=== PATIENT | male | born 1965 | race Caucasian/White ===

== ENCOUNTER 2023-03-28 07:37 | Day surgery (SDC) | payer OTHER, SELFPAY ==
--- NOTE | 2023-03-28 | PATH_ITS ---
[facility] Accession Number: [id number] No. of containers..02 Tissue . 01 Material submitted: . PART A: colon - COLON POLYPS PART B: colon - RECTO-SIGMOID . 01 Diagnosis: A. Colon Polyps: Tubular adenoma x2. . B. Rectosigmoid Colon Polyp: Tubular adenoma. [place] 04/04/2023 1149 Local . 01 Electronically signed: . Jesus Page MD, PhD, Pathologist NPI- [id number] . 01 Gross description: . Part A: COLON POLYPS: Received in formalin is 2 fragment(s) of downing, soft tissue measuring 0.3 x 0.3 x 0.1 cm to 0.3 x 0.2 x 0.2 cm submitted entirely in 1 cassette(s) Part B: RECTO-SIGMOID: Received in formalin is 1 fragment(s) of odwning, soft tissue measuring 0.7 x 0.5 x 0.1 cm submitted entirely in 1 cassette(s) /AAY 03/29/2023 0540 Local . 01 Pathologist provided ICD-10: D12.6, D12.7 . 01 CPT . 070148, 378998 Specimen Comment: A courtesy copy of this report has been sent to [phone] Performed at: 01 [facility] [address] [place] [address] [address], [place], [place] [id number] MD Hilton Morrison MD Phone: [phone]
[2023-03-28 07:59] VITALS: BMI 31.7
[2023-03-28 08:02] VITALS: BP 144/89; PULSE 72; RESP 20; TEMP 36.6; O2SAT 95
[2023-03-28] MEDS: LACTATED RINGERS 1,000 ML 42 ML IV (08:17)
--- NOTE | 2023-03-28 08:38 | PM.HP.1 ---
History of Present Illness History of Present Illness Date Patient Seen: 03/28/23 Time Patient Seen: 08:38 Chief complaint: SDC Narrative: 57-year-old male that I met earlier this year in the office. He continues to struggle with incomplete colon evacuations just been going on most of this year if not before. He has a history of colon polyps. [facility] Medical History Sleep apnea treated with continuous positive airway pressure (CPAP) Seasonal allergies Allergy history, milk products Acid reflux Social History household members: spouse Smoking Status: Never smoker alcohol intake: current Meds Home Medications and Allergies Home Medications Medication Instructions Recorded Confirmed Type fexofenadine 180 mg tablet 180 mg PO DAILY 03/28/23 03/28/23 History omeprazole magnesium 20 mg 20 mg PO DAILY 03/28/23 03/28/23 History tablet,delayed release (Prilosec OTC) Allergies Allergy/AdvReac Type Severity Reaction Status Date / Time diphenhydramine Allergy Mild Hives Verified 03/28/23 07:56 [From Benadryl] Penicillins Allergy Mild Hives Verified 03/28/23 07:56 Milk Containing Products AdvReac Unknown Vomiting Verified 03/28/23 07:56 (Dairy) Review of Systems Review of Systems ROS: Yes All systems reviewed with the patient and are negative except as otherwise documented Exam Vital Signs (past 8 hours): - 03/28/23 08:02 Temperature 97.8 F Pulse Rate 72 Respiratory Rate 20 Blood Pressure 144/89 H Pulse Oximetry 95 Oxygen Delivery Method Room Air Oxygen Delivery Method Room Air Const General: cooperative HENMT Head: normal to inspection Eyes General: appearance normal, both eyes and all related structures Neck Neck: normal visual inspection Chest Chest: normal inspection of the chest Resp Effort & Inspection: normal respiratory effort Cardio Rate: regular rate GI Inspection: normal to inspection Skin General: no rashes or lesions noted Neuro General: patient alert and patient awake Extrem General: normal to inspection and no pedal edema Psych Appearance: grossly normal Assessment & Plan Assessment & Plan narrative: 57-year-old male with a change in bowel habit and a personal history of colon polyps. Colonoscopy is pursued today.
--- NOTE | 2023-03-28 08:40 | PM.PREOP ---
Pre-operative Note Interval Note History & Physical reviewed/Exam performed by Physician: Yes Changes to H&P: No ASA Class (for procedural sedation): II
--- NOTE | 2023-03-28 09:45 | PM.OP.COLON ---
Operative Date/Time/Diagnoses Date of procedure: 03/28/23 Time of procedure: 09:45 Pre-op diagnosis: Personal history of colon polyps. Altered bowel habits. Post-op diagnosis: same Procedure & Clinicians Study performed: Colonoscopy with hot and cold snare polypectomy Same procedure as scheduled: Yes Indications: Personal history of colon polyps change in bowel habit. Surgeon: Yoan Alarcon Procedure Notes SCOAP/Timeout: Done Procedure in detail: After the risks and benefits were explained, written and verbal informed consent was obtained. The patient was brought into the procedure room and placed into the left lateral decubitus position. Please see anesthesia note for sedation details. Digital rectal examination was accomplished. The scope was introduced into the patient and advanced under direct visualization to the cecum as identified by the appendiceal orifice and ileocecal valve. The scope was slowly withdrawn to carefully examine the mucosa for any defects or lesions. Comprehensive imaging was accomplished throughout the rectum including the dentate line. The colon was decompressed, the scope was then removed from the patient who tolerated the procedure well. Adult colonoscope Bowel prep adequate Scope withdrawal time: 11 minutes Sedation minutes: 21 Complications: none Impression: There was evidence of grade 2-3 internal hemorrhoids. I noted diverticulosis all throughout the left colon. No strictures no mass lesions. There was a diminutive polyp in the proximal rectosigmoid region measuring about 5 mm removed with cold snare. In the right colon there were 2 small polyps ranging in size from 5-6 mm. Hot snare was employed for their removal. One of these was in the transverse and 1 in the distal ascending. No additional pathology was appreciated throughout. Endoscopic diagnosis 1. Colon polyps 2. Diverticulosis 3. Grade 2-3 hemorrhoids Post-procedure Plan for aftercare: 1. Await histology 2. Consider repeat colonoscopy in 3-5 years depending on histology. 3. Intermittent warm Epsom salt baths for reduced hemorrhoidal engorgement 4. Continue fiber supplementation and titrate dose to the desired stool consistency and frequency. Disposition: PACU
[2023-03-28 09:50] VITALS: BP 139/86; PULSE 64; RESP 16; TEMP 36.1; O2SAT 98
[2023-03-28 09:55] VITALS: BP 139/80; PULSE 58; RESP 16; O2SAT 94
[2023-03-28 10:01] VITALS: BP 140/80; PULSE 72; RESP 16; TEMP 36.8; O2SAT 98
== END 2023-03-28 10:10 | disposition home or self-care (01) ==
PROVIDERS: PCP Internal Medicine; Referring Provider Internal Medicine Gastroenterology; Visit Provider Internal Medicine Gastroenterology
PROC: 0DJD8ZZ Inspection of Lower Intestinal Tract, Via Natural or Artificial Opening Endoscopic (ICD-10-PCS; CPT 45378; principal; 2023-03-28 09:00)
DX: R19.4 Change in bowel habit (principal); Z86.010 Personal history of colon polyps; G47.33 Obstructive sleep apnea (adult) (pediatric); K57.30 Diverticulosis of large intestine without perforation or abscess without bleeding; K64.2 Third degree hemorrhoids; D12.7 Benign neoplasm of rectosigmoid junction; D12.6 Benign neoplasm of colon, unspecified
CPT/HCPCS: 45385; J2704